=== PATIENT | female | born 1985 | race Caucasian/White ===

== ENCOUNTER 2022-10-27 02:36 | Inpatient (IN) | payer BC, SELFPAY ==
[2022-10-27] VITALS (44 sets, daily range): BP systolic 107–160; BP diastolic 56–81; PULSE 55–94; RESP 16–18; TEMP 36.4–36.6
[2022-10-27] MEDS: 0.9 % SODIUM CHLORIDE 1,000 ML 125 ML IV (04:30)
[2022-10-27 05:31] LABS: Hematocrit 36.3 % (36.0-48.0); Mean Corpuscular HGB Conc 33.1 g/dL (29.9-35.2); Mean Corpuscular Hemoglobin 29.2 pg (26.7-34.0); Mean Corpuscular Volume 88.3 fL (81.0-99.0); Mean Platelet Volume 10.8 fL (9.5-13.5); Platelet Count 287 10^3/uL (150-450); Red Blood Count 4.11 10^6/uL (4.20-5.40); Red Cell Distribution Width 14.5 % (11.0-15.0); White Blood Count 9.2 10^3/uL (4.0-11.0)
[2022-10-27] MEDS: 0.9 % SODIUM CHLORIDE 1,000 ML 1000 ML IV (06:20)
[2022-10-27] MEDS: ROPIVACAINE HCL/PF 400 MG/200 ML PREMIX EPIDURAL (06:49)
--- NOTE | 2022-10-27 08:59 | W.PC.ACHO ---
Registration Status: ADM IN Primary Language: Belgian Preferred Language: Belgian Report given to Ignacia Stone RN at 0730 Active Medications Generic Name Dose Route Start Last Admin Trade Name Freq PRN Reason Stop Dose Admin Carboprost Tromethamine 250 mcg 10/27/22 03:56 Carboprost Tromethamine 250 Mcg/Ml 1 Ml Vial IM Q15M PRN Bleeding Diphenhydramine HCl 25 mg 10/27/22 05:43 Diphenhydramine Hcl 50 Mg/Ml (1ml) Vial IV Q6H PRN Itching Ephedrine Sulfate 5 mg 10/27/22 05:43 Ephedrine Sulfate 50 Mg/Ml Vial IV Q5M PRN Blood Pressure - Low Fentanyl Citrate 100 mcg 10/27/22 05:43 Fentanyl Citrate/Pf 100 Mcg/2 Ml Vial EPIDURAL Q4H PRN Pain Sodium Chloride 1,000 mls @ 125 mls/hr 10/27/22 04:00 10/27/22 04:30 Sodium Chloride 0.9% 1,000 Ml IV 125 mls/hr .Q8H HELENA Administration Ropivacaine/Sodium Chloride 400 mg in 200 mls @ 6 mls/hr 10/27/22 05:45 10/27/22 06:49 Naropin 0.2% 400 Mg/200 Ml Bag EPIDURAL 5 mls/hr Q24H HELENA 5 mls/hr Administration Lidocaine 5 ml 10/27/22 03:56 Lidocaine Viscous 2% 15 Ml Topical Solution TOPICAL DIRECTED PRN Pain Lidocaine 1 ml 10/27/22 03:56 Lidocaine Hcl 1% 200 Mg/20 Ml Mdv INJ DIRECTED PRN Pain Lidocaine 5 ml 10/27/22 05:43 Lidocaine Hcl 2% Pf 100 Mg/5 Ml Vial INJ Q1H PRN epidural Methylergonovine Maleate 0.2 mg 10/27/22 03:56 Methylergonovine Maleate 0.2 Mg/Ml Ampule IM ONCE PRN Uterine Contractility/Contract Methylergonovine Maleate 0.2 mg 10/27/22 03:56 Methylergonovine Maleate 0.2 Mg Tablet PO Q4H PRN Uterine Contractility/Contract Misoprostol 600 mcg 10/27/22 03:56 Misoprostol 100 Mcg Tablet PO ONCE PRN Uterine Bleeding Misoprostol 800 mcg 10/27/22 03:56 Misoprostol 100 Mcg Tablet [place] ONCE PRN Uterine Bleeding Misoprostol 1,000 mcg 10/27/22 03:56 Misoprostol 100 Mcg Tablet [place] ONCE PRN Uterine Bleeding Nalbuphine HCl 10 mg 10/27/22 03:56 Nalbuphine Hcl 10 Mg/Ml Ampule IV Q3H PRN Pain Naloxone HCl 0.4 mg 10/27/22 05:43 Naloxone Hcl 0.4 Mg/Ml Vial IV ONCE PRN epidural order Ondansetron HCl 4 mg 10/27/22 03:56 Ondansetron Pf 4 Mg/2 Ml Vial IV Q6H PRN Nausea And Vomiting Ondansetron HCl 4 mg 10/27/22 03:56 Ondansetron 4 Mg Rapdis Tablet SL Q6H PRN Nausea And Vomiting Oxytocin 10 unit 10/27/22 03:56 Oxytocin 100 Unit/10 Ml Vial IM ONCE PRN Uterine Bleeding Diet Category Date Time Status Clear Liquid Diet Diet 10/27/22 Breakfast Active Consults Category Date Time Status Consult to Anesthesiology Routine Cons 10/27/22 Ordered IV Insertion/Site Date of IV Line Insertion [ 10/27/22 Short PIV (<1.75 in) 22g left Hand] IV Insertion Time [Short PIV ( 04:00 <1.75 in) 22g left Hand] Neurology Patient orientation (short person,place,time,situation list) Yuan coma scale total score 15
[2022-10-27 09:44] LABS: Bilirubin Urine NEGATIVE (NEGATIVE); Blood Urine NEGATIVE (NEGATIVE); Clarity Urine CLEAR (CLEAR); Color Urine LT. YELLOW (YELLOW); Glucose Urine UA NEGATIVE (NEGATIVE); Ketones Urine NEGATIVE (NEGATIVE); Leukocyte Esterase Urine TRACE (NEGATIVE); Nitrite Urine NEGATIVE (NEGATIVE); Protein Urine NEGATIVE (NEG/TRACE); Specific Gravity Urine <=1.005 (1.005-1.025); Urobilinogen Urine 0.2 EU/dL (0.2-1.0); pH Urine 6.5 (5.0-9.0)
[2022-10-27 09:49] LABS: Urine Microscopic Indicated YES
[2022-10-27 09:52] LABS: Bacteria Urine NONE SEEN #/HPF (NONE SEEN); Cast Seen? NONE SEEN #/LPF (NONE SEEN); Crystals Seen? None Seen #/HPF (None Seen); Mucus Urine NONE SEEN (NONE SEEN); RBC Urine NONE SEEN #/HPF (0-2); Squamous Epithelial Cell Urine FEW #/LPF (NONE/RARE); Urine Culture Indicated NO
[2022-10-27 09:56] LABS: Amphetamine Screen Urine NEGATIVE (NEGATIVE); Barbiturates Screen Urine NEGATIVE (NEGATIVE); Benzodiazepines Screen Urine NEGATIVE (NEGATIVE); Buprenorphine Screen Urine NEGATIVE (NEGATIVE); Cannabinoid Screen Urine NEGATIVE (NEGATIVE); Cocaine Screen Urine NEGATIVE (NEGATIVE); Methadone Screen Urine NEGATIVE (NEGATIVE); Methamphetamines Screen Urine NEGATIVE (NEGATIVE); Opiate Screen Urine NEGATIVE (NEGATIVE); Oxycodone Screen Urine NEGATIVE (NEGATIVE); Phencyclidine Screen Urine NEGATIVE (NEGATIVE); Tricyclic Antidepressant Urine NEGATIVE (NEGATIVE)
--- NOTE | 2022-10-27 10:43 | PM.OBPRCVD ---
Procedure Intrapartal events: None Induction method: none Delivery augmentation: rupture of membranes Delivery monitor: external FHT and external uterine Route of delivery: Laceration description: periurethral - 1st degree Delivery repair: Vicryl Estimated blood loss (mL): 200 Anesthesia type: Epidural Disposition: floor Delivery date: 10/27/22 Gender: male presentation: vertex Placental delivery description: Spontaneous cord description: 3 Vessels and Clamped/Cut
[2022-10-27] MEDS: IBUPROFEN 600 MG TABLET PO ×2 (17:05→23:18)
[2022-10-28 07:21] VITALS: BP 131/72; PULSE 71
[2022-10-28] MEDS: IBUPROFEN 600 MG TABLET PO ×3 (07:23→22:49)
[2022-10-28 07:30] VITALS: PULSE 71; RESP 16; TEMP 36.2
--- NOTE | 2022-10-28 07:41 | W.PC.ACHO ---
Registration Status: ADM IN Primary Language: Chinese Preferred Language: Chinese Active Medications Generic Name Dose Route Start Last Admin Trade Name Freq PRN Reason Stop Dose Admin Acetaminophen 650 mg 10/27/22 10:39 Acetaminophen 325 Mg Tablet PO Q6H PRN Mild Pain Al Hydroxide/Mg Hydroxide 2,400 mg 10/27/22 10:39 Magnesium Hydroxide 2,400 Mg/10 Ml Oral.Susp PO Q6H PRN Dyspepsia Benzocaine/Menthol 1 applic 10/27/22 10:39 10/27/22 14:51 Benzocaine/Menthol 85 Gram Bottle TOPICAL 1 applic Q2H PRN Administration Pain Carboprost Tromethamine 250 mcg 10/27/22 03:56 Carboprost Tromethamine 250 Mcg/Ml 1 Ml Vial IM Q15M PRN Bleeding Diphenhydramine HCl 25 mg 10/27/22 05:43 Diphenhydramine Hcl 50 Mg/Ml (1ml) Vial IV Q6H PRN Itching Docusate Sodium 100 mg 10/28/22 09:00 Docusate Sodium 100 Mg Capsule PO BID HELENA Ephedrine Sulfate 5 mg 10/27/22 05:43 Ephedrine Sulfate 50 Mg/Ml Vial IV Q5M PRN Blood Pressure - Low Fentanyl Citrate 100 mcg 10/27/22 05:43 Fentanyl Citrate/Pf 100 Mcg/2 Ml Vial EPIDURAL Q4H PRN Pain Sodium Chloride 1,000 mls @ 125 mls/hr 10/27/22 04:00 10/27/22 04:30 Sodium Chloride 0.9% 1,000 Ml IV 125 mls/hr .Q8H HELENA Administration Ropivacaine/Sodium Chloride 400 mg in 200 mls @ 6 mls/hr 10/27/22 05:45 10/27/22 06:49 Naropin 0.2% 400 Mg/200 Ml Bag EPIDURAL 5 mls/hr Q24H HELENA 5 mls/hr Administration Ibuprofen 600 mg 10/27/22 10:39 10/28/22 07:23 Ibuprofen 600 Mg Tablet PO 600 mg Q6H PRN Administration Moderate Pain Lidocaine 5 ml 10/27/22 03:56 Lidocaine Viscous 2% 15 Ml Topical Solution TOPICAL DIRECTED PRN Pain Lidocaine 1 ml 10/27/22 03:56 Lidocaine Hcl 1% 200 Mg/20 Ml Mdv INJ DIRECTED PRN Pain Lidocaine 5 ml 10/27/22 05:43 Lidocaine Hcl 2% Pf 100 Mg/5 Ml Vial INJ Q1H PRN epidural Methylergonovine Maleate 0.2 mg 10/27/22 03:56 Methylergonovine Maleate 0.2 Mg/Ml Ampule IM ONCE PRN Uterine Contractility/Contract Methylergonovine Maleate 0.2 mg 10/27/22 03:56 Methylergonovine Maleate 0.2 Mg Tablet PO Q4H PRN Uterine Contractility/Contract Misoprostol 600 mcg 10/27/22 03:56 Misoprostol 100 Mcg Tablet PO ONCE PRN Uterine Bleeding Misoprostol 800 mcg 10/27/22 03:56 Misoprostol 100 Mcg Tablet SL ONCE PRN Uterine Bleeding Misoprostol 1,000 mcg 10/27/22 03:56 Misoprostol 100 Mcg Tablet [place] ONCE PRN Uterine Bleeding Nalbuphine HCl 10 mg 10/27/22 03:56 Nalbuphine Hcl 10 Mg/Ml Ampule IV Q3H PRN Pain Naloxone HCl 0.4 mg 10/27/22 05:43 Naloxone Hcl 0.4 Mg/Ml Vial IV ONCE PRN epidural order Ondansetron HCl 4 mg 10/27/22 03:56 Ondansetron Pf 4 Mg/2 Ml Vial IV Q6H PRN Nausea And Vomiting Ondansetron HCl 4 mg 10/27/22 03:56 Ondansetron 4 Mg Rapdis Tablet SL Q6H PRN Nausea And Vomiting Oxytocin 10 unit 10/27/22 03:56 Oxytocin 100 Unit/10 Ml Vial IM ONCE PRN Uterine Bleeding Senna 17.2 mg 10/27/22 20:00 Sennosides 8.6 Mg Tablet PO QHS PRN Constipation Simethicone 80 mg 10/27/22 10:39 Simethicone 80 Mg Tab.Chew PO QID PRN Abdominal Distention Temazepam 15 mg 10/27/22 20:00 Temazepam 15 Mg Capsule PO BEDTIME PRN Sleep Witch Vianney/Glycerin 1 each 10/27/22 10:39 10/27/22 14:51 Glycerin/Witch [place] 1 Each Jar TOPICAL 1 each Q4H PRN Administration Pain Diet Category Date Time Status Regular Consistency Diet Diet 10/27/22 Lunch Active Neurology Yuan coma scale total score 15 Respiratory Lung sounds [Throughout] clear Lung sounds [Throughout] clear Cardiology Heart Sounds Strong,Regular
--- NOTE | 2022-10-28 07:42 | PM.OBPN ---
OB - PN: Subj Subjective Patient comments: no complaints and pain well controlled Exam Constitutional Vital Signs - 24 hr 10/27/22 07:56 10/27/22 08:10 10/27/22 08:25 Temperature Pulse Rate 55 L 61 63 Respiratory Rate Blood Pressure 111/68 114/71 116/70 10/27/22 08:40 10/27/22 08:55 10/27/22 09:10 Temperature Pulse Rate 60 59 L 78 Respiratory Rate Blood Pressure 107/70 109/70 107/68 10/27/22 09:25 10/27/22 09:40 10/27/22 09:55 Temperature Pulse Rate 65 65 78 Respiratory Rate Blood Pressure 108/70 113/72 124/74 H 10/27/22 10:10 10/27/22 10:26 10/27/22 10:40 Temperature Pulse Rate 94 H 73 78 Respiratory Rate Blood Pressure 121/69 H 132/68 H 135/80 H 10/27/22 10:55 10/27/22 11:10 10/27/22 11:25 Temperature Pulse Rate 65 71 Respiratory Rate Blood Pressure 146/74 H 127/68 H 123/75 H 10/27/22 11:40 10/27/22 11:55 10/27/22 12:10 Temperature Pulse Rate 86 75 71 Respiratory Rate Blood Pressure 139/81 H 134/62 H 127/66 H 10/27/22 12:25 10/27/22 12:41 10/27/22 12:55 Temperature Pulse Rate 65 67 70 Respiratory Rate Blood Pressure 119/72 137/60 H 108/57 L 10/27/22 13:10 10/27/22 13:25 10/27/22 23:28 Temperature 97.8 F Pulse Rate 83 85 65 Respiratory Rate 16 Blood Pressure 116/68 123/73 H 126/71 H 10/28/22 07:21 Temperature Pulse Rate 71 Respiratory Rate Blood Pressure 131/72 H Common normals: no apparent distress Respiratory Common normals: normal respiratory effort and clear to auscultation bilaterally Cardio Common normals: regular rate and regular rhythm Extremity Common normals: no clubbing, cyanosis or edema and no calf tenderness Results Labs Labs: Urine 10/27/22 Range/Units 05:45 Urine Color Lt. yellow (YELLOW) Urine Clarity Clear (CLEAR) Urine pH 6.5 (5.0-9.0) Ur Specific [place] <=1.005 A (1.005-1.025) Urine Protein Negative (NEG/TRACE) mg/dL Urine Glucose (UA) Negative (NEGATIVE) mg/dL OB - PN: A/P Plan - Vaginal Delivery day: 1 Plan: routine care Time Spent with Patient Time: Total time spent is greater than 50% in coordination of care (as documented) at patient's floor/unit and/or counseling patient: Total time spent with greater than 50% in coordination of care (as documented) at patient's floor/unit and/or counseling patient: less than 15 minutes
--- NOTE | 2022-10-28 07:49 | PC.NURSE ---
MOTRIN 600 MG PO
[2022-10-28 07:51] LABS: Hematocrit 31.8 % (36.0-48.0); Hemoglobin 10.5 g/dL (12.0-16.0); Mean Corpuscular Hemoglobin 29.7 pg (26.7-34.0); Mean Corpuscular Volume 89.8 fL (81.0-99.0); Platelet Count 259 10^3/uL (150-450); Red Blood Count 3.54 10^6/uL (4.20-5.40); Red Cell Distribution Width 14.7 % (11.0-15.0); White Blood Count 10.3 10^3/uL (4.0-11.0)
[2022-10-28] MEDS: DOCUSATE SODIUM 100 MG CAPSULE PO ×2 (08:51→22:49)
--- NOTE | 2022-10-28 09:10 | PC.NURSE ---
up in room. denies needs.holding baby.
--- NOTE | 2022-10-28 14:03 | PC.NURSE ---
holding baby denies needs.
--- NOTE | 2022-10-28 15:36 | PC.NURSE ---
LC into room discussion of information in education folder. Given info on tongue tie and referral for evaluation by pediatric dentist, Pt then demo's latch for baby. Shown better positioning and latch technique that allows for deeper latch and supported . Encouraged skin to skin during feeds so takes blanket off baby and placed skin to skin. Deep latch achieved with audible swallows noted. Mom reports increased comfort as well.
[2022-10-28 16:52] VITALS: BP 144/81; PULSE 87
[2022-10-28 16:55] VITALS: BP 144/81; PULSE 87; TEMP 36.5
--- NOTE | 2022-10-28 17:01 | PC.NURSE ---
MOTRIN 600 MG PO
--- NOTE | 2022-10-28 20:07 | W.PC.ACHO ---
Registration Status: ADM IN Primary Language: Nepalese Preferred Language: Nepalese care relinquished to john lawrence at 1920 Active Medications Generic Name Dose Route Start Last Admin Trade Name Blanca PRN Reason Stop Dose Admin Acetaminophen 650 mg 10/27/22 10:39 Acetaminophen 325 Mg Tablet PO Q6H PRN Mild Pain Al Hydroxide/Mg Hydroxide 2,400 mg 10/27/22 10:39 Magnesium Hydroxide 2,400 Mg/10 Ml Oral.Susp PO Q6H PRN Dyspepsia Benzocaine/Menthol 1 applic 10/27/22 10:39 10/27/22 14:51 Benzocaine/Menthol 85 Gram Bottle TOPICAL 1 applic Q2H PRN Administration Pain Carboprost Tromethamine 250 mcg 10/27/22 03:56 Carboprost Tromethamine 250 Mcg/Ml 1 Ml Vial IM Q15M PRN Bleeding Diphenhydramine HCl 25 mg 10/27/22 05:43 Diphenhydramine Hcl 50 Mg/Ml (1ml) Vial IV Q6H PRN Itching Docusate Sodium 100 mg 10/28/22 09:00 10/28/22 08:51 Docusate Sodium 100 Mg Capsule PO 100 mg BID HELENA Administration Ephedrine Sulfate 5 mg 10/27/22 05:43 Ephedrine Sulfate 50 Mg/Ml Vial IV Q5M PRN Blood Pressure - Low Fentanyl Citrate 100 mcg 10/27/22 05:43 Fentanyl Citrate/Pf 100 Mcg/2 Ml Vial EPIDURAL Q4H PRN Pain Sodium Chloride 1,000 mls @ 125 mls/hr 10/27/22 04:00 10/27/22 04:30 Sodium Chloride 0.9% 1,000 Ml IV 125 mls/hr .Q8H HELENA Administration Ropivacaine/Sodium Chloride 400 mg in 200 mls @ 6 mls/hr 10/27/22 05:45 10/27/22 06:49 Naropin 0.2% 400 Mg/200 Ml Bag EPIDURAL 5 mls/hr Q24H HELENA 5 mls/hr Administration Ibuprofen 600 mg 10/27/22 10:39 10/28/22 16:59 Ibuprofen 600 Mg Tablet PO 600 mg Q6H PRN Administration Moderate Pain Lidocaine 5 ml 10/27/22 03:56 Lidocaine Viscous 2% 15 Ml Topical Solution TOPICAL DIRECTED PRN Pain Lidocaine 1 ml 10/27/22 03:56 Lidocaine Hcl 1% 200 Mg/20 Ml Mdv INJ DIRECTED PRN Pain Lidocaine 5 ml 10/27/22 05:43 Lidocaine Hcl 2% Pf 100 Mg/5 Ml Vial INJ Q1H PRN epidural Methylergonovine Maleate 0.2 mg 10/27/22 03:56 Methylergonovine Maleate 0.2 Mg/Ml Ampule IM ONCE PRN Uterine Contractility/Contract Methylergonovine Maleate 0.2 mg 10/27/22 03:56 Methylergonovine Maleate 0.2 Mg Tablet PO Q4H PRN Uterine Contractility/Contract Misoprostol 600 mcg 10/27/22 03:56 Misoprostol 100 Mcg Tablet PO ONCE PRN Uterine Bleeding Misoprostol 800 mcg 10/27/22 03:56 Misoprostol 100 Mcg Tablet SL ONCE PRN Uterine Bleeding Misoprostol 1,000 mcg 10/27/22 03:56 Misoprostol 100 Mcg Tablet [place] ONCE PRN Uterine Bleeding Nalbuphine HCl 10 mg 10/27/22 03:56 Nalbuphine Hcl 10 Mg/Ml Ampule IV Q3H PRN Pain Naloxone HCl 0.4 mg 10/27/22 05:43 Naloxone Hcl 0.4 Mg/Ml Vial IV ONCE PRN epidural order Ondansetron HCl 4 mg 10/27/22 03:56 Ondansetron Pf 4 Mg/2 Ml Vial IV Q6H PRN Nausea And Vomiting Ondansetron HCl 4 mg 10/27/22 03:56 Ondansetron 4 Mg Rapdis Tablet SL Q6H PRN Nausea And Vomiting Oxytocin 10 unit 10/27/22 03:56 Oxytocin 100 Unit/10 Ml Vial IM ONCE PRN Uterine Bleeding Senna 17.2 mg 10/27/22 20:00 Sennosides 8.6 Mg Tablet PO QHS PRN Constipation Simethicone 80 mg 10/27/22 10:39 Simethicone 80 Mg Tab.Chew PO QID PRN Abdominal Distention Temazepam 15 mg 10/27/22 20:00 Temazepam 15 Mg Capsule PO BEDTIME PRN Sleep Witch [place]/Glycerin 1 each 10/27/22 10:39 10/28/22 19:37 Glycerin/[place]itch [place] 1 Each Jar TOPICAL 1 each Q4H PRN Administration Pain Neurology Yuan coma scale total score 15 [place] coma scale total score 15 Respiratory Lung sounds [Throughout] clear Lung sounds [Throughout] clear Lung sounds [Throughout] clear Cardiology Heart Sounds Regular Bowels Bowel Pattern No Bowel Movement Renal Bladder Pattern Continent Bladder Pattern Continent
[2022-10-28 23:36] VITALS: BP 124/67; PULSE 67
[2022-10-28 23:37] VITALS: BP 124/67; PULSE 67; RESP 16; TEMP 36.8
--- NOTE | 2022-10-29 07:50 | W.PC.ACHO ---
Registration Status: ADM IN Primary Language: Cypriot Preferred Language: Cypriot Active Medications Report given Generic Name Dose Route Start Last Admin Trade Name Freq PRN Reason Stop Dose Admin Acetaminophen 650 mg 10/27/22 10:39 Acetaminophen 325 Mg Tablet PO Q6H PRN Mild Pain Al Hydroxide/Mg Hydroxide 2,400 mg 10/27/22 10:39 Magnesium Hydroxide 2,400 Mg/10 Ml Oral.Susp PO Q6H PRN Dyspepsia Benzocaine/Menthol 1 applic 10/27/22 10:39 10/27/22 14:51 Benzocaine/Menthol 85 Gram Bottle TOPICAL 1 applic Q2H PRN Administration Pain Carboprost Tromethamine 250 mcg 10/27/22 03:56 Carboprost Tromethamine 250 Mcg/Ml 1 Ml Vial IM Q15M PRN Bleeding Diphenhydramine HCl 25 mg 10/27/22 05:43 Diphenhydramine Hcl 50 Mg/Ml (1ml) Vial IV Q6H PRN Itching Docusate Sodium 100 mg 10/28/22 09:00 10/28/22 22:49 Docusate Sodium 100 Mg Capsule PO 100 mg BID HELENA Administration Ephedrine Sulfate 5 mg 10/27/22 05:43 Ephedrine Sulfate 50 Mg/Ml Vial IV Q5M PRN Blood Pressure - Low Fentanyl Citrate 100 mcg 10/27/22 05:43 Fentanyl Citrate/Pf 100 Mcg/2 Ml Vial EPIDURAL Q4H PRN Pain Sodium Chloride 1,000 mls @ 125 mls/hr 10/27/22 04:00 10/27/22 04:30 Sodium Chloride 0.9% 1,000 Ml IV 125 mls/hr .Q8H HELENA Administration Ropivacaine/Sodium Chloride 400 mg in 200 mls @ 6 mls/hr 10/27/22 05:45 10/27/22 06:49 Naropin 0.2% 400 Mg/200 Ml Bag EPIDURAL 5 mls/hr Q24H HELENA 5 mls/hr Administration Ibuprofen 600 mg 10/27/22 10:39 10/28/22 22:49 Ibuprofen 600 Mg Tablet PO 600 mg Q6H PRN Administration Moderate Pain Lidocaine 5 ml 10/27/22 03:56 Lidocaine Viscous 2% 15 Ml Topical Solution TOPICAL DIRECTED PRN Pain Lidocaine 1 ml 10/27/22 03:56 Lidocaine Hcl 1% 200 Mg/20 Ml Mdv INJ DIRECTED PRN Pain Lidocaine 5 ml 10/27/22 05:43 Lidocaine Hcl 2% Pf 100 Mg/5 Ml Vial INJ Q1H PRN epidural Methylergonovine Maleate 0.2 mg 10/27/22 03:56 Methylergonovine Maleate 0.2 Mg/Ml Ampule IM ONCE PRN Uterine Contractility/Contract Methylergonovine Maleate 0.2 mg 10/27/22 03:56 Methylergonovine Maleate 0.2 Mg Tablet PO Q4H PRN Uterine Contractility/Contract Misoprostol 600 mcg 10/27/22 03:56 Misoprostol 100 Mcg Tablet PO ONCE PRN Uterine Bleeding Misoprostol 800 mcg 10/27/22 03:56 Misoprostol 100 Mcg Tablet SL ONCE PRN Uterine Bleeding Misoprostol 1,000 mcg 10/27/22 03:56 Misoprostol 100 Mcg Tablet [place] ONCE PRN Uterine Bleeding Nalbuphine HCl 10 mg 10/27/22 03:56 Nalbuphine Hcl 10 Mg/Ml Ampule IV Q3H PRN Pain Naloxone HCl 0.4 mg 10/27/22 05:43 Naloxone Hcl 0.4 Mg/Ml Vial IV ONCE PRN epidural order Ondansetron HCl 4 mg 10/27/22 03:56 Ondansetron Pf 4 Mg/2 Ml Vial IV Q6H PRN Nausea And Vomiting Ondansetron HCl 4 mg 10/27/22 03:56 Ondansetron 4 Mg Rapdis Tablet SL Q6H PRN Nausea And Vomiting Oxytocin 10 unit 10/27/22 03:56 Oxytocin 100 Unit/10 Ml Vial IM ONCE PRN Uterine Bleeding Senna 17.2 mg 10/27/22 20:00 Sennosides 8.6 Mg Tablet PO QHS PRN Constipation Simethicone 80 mg 10/27/22 10:39 Simethicone 80 Mg Tab.Chew PO QID PRN Abdominal Distention Temazepam 15 mg 10/27/22 20:00 Temazepam 15 Mg Capsule PO BEDTIME PRN Sleep Witch [place]/Glycerin 1 each 10/27/22 10:39 10/28/22 19:37 Glycerin/Witch [place] 1 Each Jar TOPICAL 1 each Q4H PRN Administration Pain Neurology [place] coma scale total score 15 Respiratory Lung sounds [Throughout] clear Lung sounds [Throughout] clear Oxygen Delivery Method Room Air Cardiology Heart Sounds Regular Renal Bladder Pattern Continent
[2022-10-29 10:31] VITALS: BP 119/77; PULSE 86
[2022-10-29] MEDS: IBUPROFEN 600 MG TABLET PO (10:38)
[2022-10-29] MEDS: DOCUSATE SODIUM 100 MG CAPSULE PO (10:38)
[2022-10-29 11:05] VITALS: BP 119/77; PULSE 86; RESP 16; TEMP 37.3
--- NOTE | 2022-10-29 13:09 | PM.OBPN ---
OB - PN: Subj Subjective Patient comments: no complaints and pain well controlled Exam Constitutional Vital Signs - 24 hr 10/28/22 16:52 10/28/22 23:36 10/29/22 10:31 Temperature Pulse Rate 87 67 86 Respiratory Rate Blood Pressure 144/81 H 124/67 H 119/77 Blood Pressure [Left Arm] Blood Pressure [Right Arm] Oxygen Delivery Method 10/28/22 16:55 10/28/22 23:37 10/28/22 23:37 Temperature 97.7 F 98.2 F Pulse Rate 87 67 Respiratory Rate 16 Blood Pressure Blood Pressure [Left Arm] Blood Pressure [Right Arm] 144/81 H 124/67 H Oxygen Delivery Method Room Air 10/29/22 11:05 Temperature 99.2 F Pulse Rate 86 Respiratory Rate 16 Blood Pressure Blood Pressure [Left Arm] 119/77 Blood Pressure [Right Arm] Oxygen Delivery Method Documenting provider has reviewed patient's vital signs: yes Common normals: no apparent distress Respiratory Common normals: normal respiratory effort and clear to auscultation bilaterally Cardio Common normals: regular rate and regular rhythm GI Common normals: Normal to inspection, nondistended, normoactive bowel sounds present Extremity Common normals: no clubbing, cyanosis or edema and no calf tenderness OB - PN: A/P Plan - Vaginal Delivery day: 2 Plan: routine care, discharge home and follow up 6 weeks Time Spent with Patient Time: Total time spent is greater than 50% in coordination of care (as documented) at patient's floor/unit and/or counseling patient: Total time spent with greater than 50% in coordination of care (as documented) at patient's floor/unit and/or counseling patient: less than 15 minutes
[2022-10-29] MEDS: MEASLES,MUMPS,RUBELLA VACC/PF 0.5 ML VIAL SQ (14:04)
== END 2022-10-29 14:25 | disposition home or self-care (01) | DRG 807 ==
PROVIDERS: Admitting Provider Obstetrics & Gynecology; Visit Provider Obstetrics & Gynecology
DX: O71.82 Other specified trauma to perineum and vulva (principal); Z37.0 Single live birth; Z3A.39 39 weeks gestation of pregnancy
CPT/HCPCS: 36415; 51701; 59050; 59410; 80307; 81003; 81015; 85025; 85027; 86850; 86900; 86901; 90471; 90707; 96374